=== PATIENT | male | born 1955 | race Caucasian/White ===

== ENCOUNTER 2016-09-13 19:55 | Emergency (ER) | payer MEDICARE ==
[~2016-09-13] VITALS: Ht 175.3 cm; Wt 68.0 kg
[~2016-09-13 19:55] MED LIST: ASPI81TA2 PO; TRAM50TA PO
--- NOTE | 2016-09-13 20:12 | NUR ---
ARRIVAL: PT AMBULATED TO ED 4, PLACED IN GOWN AND UA OBTAINED VIA CLEAN CATCH. ASSESSMENT CHARTED. PLACED ON CONTINUIOUS MONITOR. EDP NOTIFIED OF PT.
[2016-09-13] MEDS ORDERED: ZOFRAN IV STA (20:23)
[2016-09-13 20:28] LABS: BILIRUBIN,URINE NEGATIVE (NEGATIVE); UA COLOR YELLOW (YELLOW); UROBILINOGEN,URINE NORMAL (NEGATIVE)
[2016-09-13] MEDS ORDERED: NS 1000ML 1,000 ML IV ONE (20:30)
[2016-09-13 20:33] LABS: APPEARANCE,URINE SLIGHTLY HAZY (CLEAR)
[2016-09-13 20:34] LABS: WBC,URINE 0-2 WBC/HPF (0-2)
[2016-09-13 20:37] LABS: BASOPHIL % 0.1 % (0.0-0.2); EOSINOPHIL # 0.1 10^3/uL (0.0-0.2); EOSINOPHIL % 0.5 % (0.0-5.0); HEMATOCRIT 40.3 % (37.0-53.0); HEMOGLOBIN 13.6 g/dL (13.9-16.3); LYMPHOCYTES # 2.2 10^3/uL (1.0-4.8); LYMPHOCYTES % 14.4 % (24.0-44.0); MEAN CELL HGB 29.3 pg (26-34); MEAN CELL HGB CONCENTRATION 33.7 g/dL (33-37); MEAN CORP VOLUME 86.9 fL (78-100); MEAN PLATELET VOLUME 9.2 fL (7.8-11.0); MONOCYTES # 1.1 10^3/uL (0.3-0.8); NEUTROPHIL # 11.8 10^3/uL (1.8-7.7); NEUTROPHILS % 77.8 % (41.0-85.0); RED CELL DISTRIBUTION WIDTH 12.8 % (11.5-14.5); WHITE BLOOD CELL 15.2 10^3/uL (4.5-11.0)
[2016-09-13] MEDS ORDERED: ZOFRAN ONE (20:52)
[2016-09-13] MEDS ORDERED: NS 1000ML 1,000 ML ONE ×2 (20:52→21:31)
--- NOTE | 2016-09-13 21:15 | NUR ---
LAB: LAB CALLED WITH CREATININE LAB. EDP NOTIFIED.
[2016-09-13 21:18] LABS: ALKALINE PHOSPHATASE 47 U/L (50-136); AMYLASE 43 U/L (25-115); ASPARTATE AMINO TRANSFERASE 15 U/L (0-35); CALCIUM 8.3 mg/dL (8.4-10.5); CARBON DIOXIDE 24.6 mmol/L (20.0-32); GLUCOSE 106 mg/dL (70-110)
[2016-09-13 21:19] LABS: ALANINE AMINOTRANSFERASE 3 U/L (12-78)
[2016-09-13] MEDS ORDERED: LACTATED RINGERS IV SCH (21:30)
--- NOTE | 2016-09-13 21:33 | NUR ---
IV FLUIDS: 2ND LITER OF NS STARTED ORDERED BY EDP.
--- NOTE | 2016-09-13 21:54 | DIREP ---
PROCEDURE:CT ABDOMEN/PELVIS W/ CONTRAST COMPARISON:[facility], CT, CT-ABDOMEN /PELVIS W W/O CONTRAST, 06/14/2012, 03:15 PM. INDICATIONS:RLQ pain TECHNIQUE:Axial images were created through the abdomen and pelvis with non-ionic intravenous contrast material. No oral contrast was administered. Sagittal and coronal reconstructions were performed from source images. FINDINGS: LUNG BASES:Normal. No visible pulmonary or pleural disease. LIVER:Normal. No significant liver lesions are identified. BILIARY:Normal. No visible dilatation or calcification. PANCREAS:Normal. No lesion, fluid collection, ductal dilatation, or atrophy. SPLEEN:Normal. No enlargement or focal lesion. ADRENALS:Normal. No mass or enlargement. URINARY TRACT:Normal. No focal lesions or hydronephrosis. AORTA/VASCULAR:Normal. No aneurysm. RETROPERITONEUM:Normal. No mass or adenopathy. BOWEL/MESENTERY:The appendix is swollen and there is mild edema/inflammation in the adjacent periappendiceal fat. No abscess is identified. No obstruction, free air, or free fluid are present. ABDOMINAL WALL:Normal. No mass or hernia. PELVIC ORGANS:Prostate is mildly enlarged. BONES:Normal for age. No bony lesion or acute fracture. OTHER:Negative. CONCLUSION: 1. Acute appendicitis. 2. Mildly enlarged prostate. This report was called by telephone at 9:52 pm on September 13, [address] Fady Montes. Dictated by: Po Lezama M.D. on 09/13/2016 at 09:46 PM
--- NOTE | 2016-09-13 21:54 | ER.PDOC ---
General Chief Complaint: Abdomen Pain Stated Complaint: RIGHT SIDE ABD PAIN Time seen by MD: 20:45 Source: patient Exam Limitations: no limitations History of Present Illness Initial Comments Abdominal pain started yesterday, intense on RLQ, no nausea, vomiting Timing/Duration: 24 hours Severity/Quality: severe Radiation: RLQ, periumbilical Allergies: Coded Allergies: codeine (Unverified Allergy, Unknown, 06/21/16) Home Meds Reported Medications Aspirin 81 Mg Tab.chew1 Tab PO DAILY #30 TAB Ref 3 02/12/15 Vital Signs First Vital Signs Date Time Temp Pulse Resp B/P Pulse Ox O2 Delivery O2 Flow Rate FiO2 09/13/16 20:08 98.2 82 18 98 09/13/16 20:11 120/69 Last Vital Signs Date Time Temp Pulse Resp B/P Pulse Ox O2 Delivery O2 Flow Rate FiO2 09/13/16 20:11 98.2 82 18 120/69 98 Past Medical History Medical History: CVA/TIA/stroke, cardiac problems, heart attack Surgical History: cardiac cath, cholecystectomy, pacemaker/ICD, stent Social History Smoking: non-smoker Alcohol Use: none Drug Use: none Constitutional: see HPI EENTM: see HPI Respiratory: see HPI Cardiovascular: see HPI Gastrointestinal: see HPI Genitourinary: see HPI Musculoskeletal: see HPI Skin: see HPI Psychiatric/Neurological: see HPI Endocrine: see HPI Hematologic/Lymphatic: see HPI Physical Exam General Appearance: No Apparent Distress, WD/WN HEENT: PERRL/EOMI, Normal ENT Inspection, TMs Normal, Pharynx Normal Neck: Non-Tender, Full Range of Motion, Supple, Normal Inspection Respiratory: chest non-tender, lungs clear, normal breath sounds, no respiratory distress, no accessory muscle use Cardiovascular: Normal Peripheral Pulses, Regular Rate, Rhythm, No Edema, No Gallop, No JVD, No Murmur Gastrointestinal: Hypoactive bowel sounds, Distended, Guarding (RLQ), Rebound ( RLQ), Tenderness (RLQ) Male Genitalia: Normal Genitalia, Normal Prostate, No Hernia Rectal: Normal Exam Back: Normal Inspection, No CVA Tenderness, No Vertebral Tenderness Extremities: Normal Range of Motion, Non-Tender, Normal Inspection, No Pedal Edema, No Calf Tenderness, Normal Capillary Refill, Pelvis Stable Neurologic/Psychiatric: supervisor felling bucking II-XII NML as Tested, No Motor/Sensory Deficits, Alert, Normal Mood/Affect, Oriented x 3 Skin: Normal Color, Warm/Dry Lymphatic: No Adenopathy Results/Orders Results/Orders Laboratory Tests Test 09/13/16 20:23 09/13/16 20:30 Urine Collection Type Unknown Urine Color Yellow (YELLOW) Urine Appearance Slightly hazy (CLEAR) Urine Bilirubin NegativeMG/DL (NEGATIVE) Urine Ketones Negative (NEGATIVE) Urine Specific [place] 1.020 (1.005-1.035) Urine pH 6 (5.0-6.0) Urine Protein 15 mg/dl (NEGATIVE) Urine Urobilinogen Normal (NEGATIVE) Urine Nitrate Negative (NEGATAIVE) Urine Leukocyte Esterase Negative (NEGATIVE) Urine Blood Negative (NEGATIVE) Urine RBC 0-2RBC/HPF (NONE SEEN) Urine WBC 0-2WBC/HPF (0-2) Urine Squamous Epithelial Cells Rare#/HPF (FEW) Urine Bacteria Rare (NONE SEEN) Urine Fine Granular Casts 0-1 Urine Glucose Normal (NEGATIVE) White Blood Count 15.210^3/uL (4.5-11.0) Red Blood Count 4.6410^6/uL (4.50-5.90) Hemoglobin 13.6g/dL (13.9-16.3) Hematocrit 40.3% (37.0-53.0) Mean Corpuscular Volume 86.9fL (78-100) Mean Corpuscular Hemoglobin 29.3pg (26-34) Mean Corpuscular Hemoglobin Concent 33.7g/dL (33-37) Red Cell Distribution Width 12.8% (11.5-14.5) Platelet Count 28156^3/uL (150-400) Mean Platelet Volume 9.2fL (7.8-11.0) Neutrophils (%) (Auto) 77.8% (41.0-85.0) Lymphocytes (%) (Auto) 14.4% (24.0-44.0) Monocytes (%) (Auto) 7.0% (5.0-12.0) Neutrophils # (Auto) 11.810^3/uL (1.8-7.7) Lymphocytes # (Auto) 2.210^3/uL (1.0-4.8) Monocytes # (Auto) 1.110^3/uL (0.3-0.8) Absolute Immature Granulocyte (auto 0.0310^3 u/L (0-2) Eosinophils % 0.5% (0.0-5.0) Basophils % 0.1% (0.0-0.2) Basophils # 0.010^3/uL (0.0-0.1) Eosinophil Count 0.110^3/uL (0.0-0.2) Prothrombin Time 12.0SEC (8.6-11.8) Prothromb Time International Ratio 1.2 Activated Partial Thromboplast Time 26.5SEC (24.67-30.72) Sodium Level 141mmol/L (132-145) Potassium Level 3.7mmol/L (3.6-5.2) Chloride Level 106.0mmol/L (96-109) Carbon Dioxide Level 24.6mmol/L (20.0-32) Anion Gap 14.1 Blood Urea Nitrogen 14mg/dL (7-18) Creatinine 1.11mg/dL (0.59-1.40) Estimat Glomerular Filtration Rate >60 BUN/Creatinine Ratio 12.0 Glucose Level 106mg/dL (70-110) Calculated Osmolality 292.0 Calcium Level 8.3mg/dL (8.4-10.5) Total Bilirubin 1.1mg/dL (0.2-1.0) Aspartate Amino Transf (AST/SGOT) 15U/L (0-35) Alanine Aminotransferase (ALT/SGPT) 3U/L (12-78) Alkaline Phosphatase 47U/L (50-136) Total Protein 6.8g/dL (6.4-8.2) Albumin 3.5g/dL (3.4-5.0) Globulin 3.3 Amylase Level 43U/L (25-115) Lipase 85U/L (114-286) Percent Immature Gran (Cell Imm) 0.20% (0.00-0.50) Administered Medications Medications (Trade) Dose Ordered Sig/Celio Route PRN Reason Start Time Stop Time Status Last Admin Dose Admin Sodium Chloride (NS 1000ml) 1,000 ml @ 1,200 mls/hr Q50M ONCE IV 09/13/16 20:30 09/13/16 21:19 DC 09/13/16 20:55 Ondansetron HCl (Zofran) 4 mg STAT STAT IV 2/11/17 20:23 09/13/16 20:24 DC 09/13/16 20:55 Course Blood Pressure Systolic: 120 Blood Pressure Diastolic: 69 Blood Pressure Mean: 86 Departure Time of Disposition: 22:07 Disposition: 09 ADMITTED INPATIENT Impression: Primary Impression: Acute appendicitis Condition: Critical Patient Instructions: Abdominal Pain Referrals: SARAY MANN PNEUMATIC TESTER MECHANIC (PCP) PRIMARY CARE PROVIDER DONTE MARTINEZ MD Sep 13, 2016 21:55
--- NOTE | 2016-09-13 22:05 | NUR ---
DR. BALDWIN: EDP ON PHONE WITH DR. BALDWIN ABOUT PT. AWAITING FURTHER ORDERS.
--- NOTE | 2016-09-13 22:10 | NUR ---
DR GIANCARLO MONDRAGON CONTACTEDFOR CARDIAC CLEARANCE PER REQUEST OF DR BALDWIN, DR MONDRAGON SUGGESTS PATIENT BE TRANSFERRED , DR BALDWIN NOTIFIED
--- NOTE | 2016-09-13 22:15 | PRM.ACF1 ---
Admission Criteria Forms ABDOMINAL PAIN Clinical Indications for Admission to Inpatient Care (Place 'X' for any and all applicable criteria): Admission is indicated for ANY ONE of the following(1)(2)(3)(4)(5): [X ]I. Inpatient admission required rather than observation care (Also use Abdominal Pain: Observation Care, as appropriate) because of ANY ONE of the following: [ X]a) Severe pain requiring acute inpatient management [ ]b) Identification of etiology/finding that requires inpatient care (eg, aortic dissection, free air) [ ]c) Absent bowel sounds with complete ileus(6) [ ]d) Suspected toxic megacolon [ ]e) Severe electrolyte abnormalities requiring inpatient care [ ]f) High fever or infection requiring inpatient admission as indicated by ANY ONE of following(7)(8): [ ] i) Appropriate outpatient or observational care antimicrobial treatment unavailable, not effective, or not feasible [ ] ii) Documented bacteremia [ ] iii) Temperature > 104.9 degrees F (oral) [ ] iv) T >103.1 F (oral) or < 96.8 F(rectal) that does not respond to all emergency treatment measures [ ]g) Signs of intestinal obstruction [B] [ ]h) Hemodynamic instability [ ]i) IV fluid to replace significant ongoing losses (greater than 3 L/m2 per day) (12)(13) [ ]j) Percutaneous or open drainage (eg, abscess, biliary tract ) procedures [ ]k) Parenteral nutrition regimen that must be implemented on inpatient basis [ X]l) Other condition,treatment or monitoring requiring inpatient admission. [ ]II. Peritoneal signs present [ ]III. Surgery needed that cannot be performed on an ambulatory basis. [ ]IV. Evaluation requires patient to not eat or drink for extended period ( eg, more than 24 hours). [ ]V. Contraindications and/or Inappropriate clinical situations for Observational Care in patients with abdominal pain, when ANY ONE of the following is required: [ ]a) Thorough evaluation is required to prevent catastrophic events due to delays in diagnosing (e.g.Mesenteric ischemia) 1,3 [ ]b) Patient with severe pathology or with chronic symptoms unlikely to improve in the ED stay (3) [ ]. General contraindications and/or Inappropriate clinical situations for Observational Care in patients with abdominal pain, when ANY ONE of the following is required: [ ]a) Prediction of prolongation of LOS based on ANY ONE of the following may be considered as a contraindication for observational care 2, 3, 4, 5, 6, 7, 8, 9, 10, 11 [ ]i) Age > 65 yrs. [ ]ii) Patient arriving by ambulance [ ]iii) Patient with high acuity [ ]iv) Patient requiring vital sign monitoring [ ]v) Patient on IV medication [ ]b) Systolic blood pressures 180mmHg 3,12 [ ]c) Patient with altered mental status including delirium and other alteration of consciousness, (3) [ ]d) Patient whose discharge disposition will be to a [place] [facility] home or rehabilitation home should not be managed in Emergency Department Observation Unit. CMS rule requires 3 days hospital stay before such placement.3,13 [ ]e) Patient with failure to thrive due to broad array of etiologies 3,16,17 [ ]f) Inability to ambulate 3,14 Extended stay beyond goal length of stay may be needed for(2)(3): [ ]a) Persistent abdominal pain with suspected intra-abdominal process [ ]b) Diagnosed condition requiring continued stay (e.g., pancreatitis, complicated diverticulitis) [ ]c) Surgery (e.g., colectomy) The original [employer] content created by [employer] has been revised. The portions of the content which have been revised are identified through the use of italic text or in bold, and [facility] has neither reviewed nor approved the modified material.All other unmodified content is copyright [facility] Please see references footnoted in the original [facility] edition 2016 Is [facility]/Alysia's added/comple: YES LA ZHANG CDS Sep 13, 2016 22:15
--- NOTE | 2016-09-13 22:24 | NUR ---
[facility]: EDP ON PHONE WITH [facility] TRANSFER LINE. [facility] TRANSFERED EDP TO [facility].
--- NOTE | 2016-09-13 22:33 | NUR ---
DR. BURNS: EDP ON PHONE WITH DR. BUNRS. AWAITING FURTHER OREDERS.
--- NOTE | 2016-09-13 22:44 | NUR ---
[facility] CALLED [facility] , WILL CALL US BACK
--- NOTE | 2016-09-13 22:51 | NUR ---
[facility]: RUTHIE WITH [facility] CALL BACK. STATES ETA OF 40 MINS. WAS WONDERING IF EMS WOULD BRING PT.
--- NOTE | 2016-09-13 23:08 | NUR ---
[facility]: [facility] IN ER. REPORT GIVEN NO QUESTIONS AT THIS TIME. PT TO BE TRANSPORTED TO [facility] FOR [facility] TO PICK PT UP.
--- NOTE | 2016-09-13 23:18 | NUR ---
[facility]: PT TAKEN OUT BY [facility].
[2016-09-13 23:25] VITALS: BP 124/83
--- NOTE | 2016-09-13 23:25 | NUR ---
PT REPORT: PT REPORT CALLED TO MADAI DAMON AT [facility] ER. NO QUESTIONS AT THIS TIME.
== END 2016-09-13 23:25 | disposition short-term general hospital (02) ==
LOC: ER 19:55
DX: K35.80 Unspecified acute appendicitis (principal); I25.2 Old myocardial infarction; Z86.73 Personal history of transient ischemic attack (TIA), and cerebral infarction without residual deficits; Z86.79 Personal history of other diseases of the circulatory system; Z95.818 Presence of other cardiac implants and grafts; Z95.0 Presence of cardiac pacemaker; Z95.5 Presence of coronary angioplasty implant and graft; Z88.5 Allergy status to narcotic agent; Z79.82 Long term (current) use of aspirin
CPT/HCPCS: 36415; 74177; 80053; 81000; 82150; 83690; 85025; 85610; 85730; 87086; 96361; 96374; 99285; J2405; J7030 ×2; Q9967

== ENCOUNTER 2017-03-16 09:54 | Emergency (ER) | payer MEDICARE ==
[~2017-03-16] VITALS: Ht 175.3 cm; Wt 71.2 kg
--- NOTE | 2017-03-16 10:38 | ER.PDOC ---
General Chief Complaint: Extremities Stated Complaint: R ELBOW PAIN Time seen by MD: 10:33 Source: patient Exam Limitations: no limitations History of Present Illness Initial Comments 61 year old white male with right elbow pain for one week now. No history of recent trauma. Localized to lateral epicondyle. No swelling. Takes tylenol with no relief Occurred: last week Severity: moderate Exacerbated By: movement of Relieved By: rest Quality: pain Allergies: Coded Allergies: codeine (Unverified Allergy, Unknown, 06/21/16) Home Meds Reported Medications Aspirin (ASPIRIN) 81 Mg Tab.chew, 1 TAB PO DAILY, #30 TAB 3 Refills 02/12/15 Past Medical History Medical History: cardiac problems, other (pacemaker) Surgical History: appendectomy, shoulder Family History Significant Family History: no pertinent family hx Social History Smoking: non-smoker Alcohol Use: none Drug Use: none Review of Systems Constitutional: denies no symptoms reported, denies see HPI, denies chills, denies diaphoresis, denies fever, denies malaise, denies weakness, denies other EENTM: denies no symptoms reported, denies see HPI, denies eye pain, denies blurred vision, denies tearing, denies double vision, denies ear pain, denies ear discharge, denies nose pain, denies nose congestion, denies throat pain, denies throat swelling, denies mouth pain, denies mouth swelling, denies other Respiratory: denies no symptoms reported, denies see HPI, denies cough, denies orthopnea, denies shortness of breath, denies stridor, denies wheezing, denies other Cardiovascular: denies no symptoms reported, see HPI, denies chest pain, denies edema, denies palpitations, denies syncope, denies other Gastrointestinal: denies no symptoms reported, denies see HPI, denies abdominal pain, denies constipation, denies diarrhea, denies nausea, denies vomiting, denies other Genitourinary: denies no symptoms reported, denies see HPI, denies discharge, denies dysuria, denies frequency, denies hematuria, denies pain, denies other Musculoskeletal: denies no symptoms reported, denies see HPI, denies back pain , denies gout, denies joint pain, denies joint swelling, denies muscle pain, denies muscle stiffness, denies neck pain, denies other Skin: denies no symptoms reported, denies see HPI, denies change in color, denies change in hair/nails, denies dryness, denies lesions, denies lumps, denies rash, denies other Psychiatric/Neurological: denies no symptoms reported, denies see HPI, denies anxiety, denies depressed, denies emotional problems, denies headache, denies numbness, denies paresthesia, denies pre-existing deficit, denies seizure, denies tingling, denies tremors, denies weakness, denies other Physical Exam General Appearance: alert, no distress Upper Extremity: nml inspection, no edema, nml ROM, joints nml, tenderness ( Point tenderness, lateral epicondyle, right elbow) Skin: color nml, warm/dry Vascular: no vascular compromise Neuro/Psych: sensation nml, motor nml Central Exam: oriented X3, CN's nml as tested, nml speech, nml cognition, nml mood/affect EENT: eyes nml inspection, ENT nml inspection, pharynx nml Neck/Back: nml inspection Respiratory: no resp distress, breath sounds nml CVS: reg rate & rhythm, heart sounds nml Abdomen: non-tender, no organomegaly, nml bowels sounds Departure Time of Disposition: 10:37 Disposition: 01 HOME, SELF-CARE Impression: Primary Impression: Lateral epicondylitis of right elbow Condition: Stable Referrals: SARAY MANN EVAPORATIVE COOLER INSTALLER (PCP) PRIMARY CARE PROVIDER Additional Instructions: Indomethacin prn Follow up PCP RTER prn JCARLOS REYNOLDS MD Mar 16, 2017 10:38
[2017-03-16 10:59] VITALS: BP 110/71
== END 2017-03-16 10:56 | disposition home or self-care (01) ==
LOC: ER 09:54
DX: M77.11 Lateral epicondylitis, right elbow (principal); Z95.0 Presence of cardiac pacemaker; Z90.49 Acquired absence of other specified parts of digestive tract; Z88.5 Allergy status to narcotic agent; Z79.82 Long term (current) use of aspirin
CPT/HCPCS: 99283

== ENCOUNTER 2017-05-08 11:25 | Emergency (ER) | payer MEDICARE ==
[~2017-05-08] VITALS: Ht 175.3 cm; Wt 68.9 kg
[~2017-05-08 11:25] MED LIST changes: +ASPI-667 PO; -ASPI81TA2 PO
--- NOTE | 2017-05-08 11:41 | NUR ---
ARRIVAL PATIENT ARRIVED TO ED5 AMBULATORY WITH , C/O OF COUGH FOR THE PAST 2 DAYS, COUGHING UP WITH EMESIS, DENIES TAKING ANY MEDICATIONS, HERE FOR FURTHER EVAL. NO DISTRESS NOTED.
[2017-05-08] MEDS ORDERED: LIDOCAINE 1% VIAL ONE (11:51)
[2017-05-08] MEDS ORDERED: ROCEPHIN ONE (11:52)
[2017-05-08] MEDS ORDERED: ROCEPHIN 1,000 MG in NS 100ML 100 ML IV STA (11:58)
--- NOTE | 2017-05-08 11:59 | ER.PDOC ---
General Chief Complaint: Cough/Congestion Stated Complaint: COUGH/CONGESTION Time seen by MD: 11:45 Source: patient Exam Limitations: no limitations History of Present Illness Initial Comments cough Severity: mild Activities at Onset: none Prior Episodes/Possible Cause: no prior episodes Modifying Factors: improves with activity Associated Symptoms: denies symptoms Prior symptoms/Treatment: Similar symptoms previous Allergies: Coded Allergies: codeine (Unverified Allergy, Unknown, 06/21/16) Home Meds Reported Medications Aspirin (ASPIRIN) 81 Mg Tab.chew, 1 TAB PO DAILY, #30 TAB 3 Refills 02/12/15 Past Medical History Medical History: cardiac problems Surgical History: appendectomy, pacemaker/ICD Family History Significant Family History: no pertinent family hx Social History Smoking: non-smoker Alcohol Use: none Drug Use: none Review of Systems Constitutional: denies fever Respiratory: cough Cardiovascular: denies chest pain Genitourinary: denies discharge Psychiatric/Neurological: denies anxiety All Other Systems: Reviewed and Negative Physical Exam General Appearance: Cachetic HEENT: PERRL/EOMI, Normal ENT Inspection, TMs Normal, Pharynx Normal Neck: Non-Tender, Full Range of Motion, Supple, Normal Inspection Respiratory: no respiratory distress Cardiovascular: Normal Peripheral Pulses, Regular Rate, Rhythm, No Edema, No Gallop, No JVD, No Murmur Extremities: Normal Range of Motion, Non-Tender, Normal Inspection, No Pedal Edema, No Calf Tenderness, Normal Capillary Refill Neurologic/Psychiatric: 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
[2017-05-08] MEDS: ROCEPHIN IM IM STA (12:00)
[2017-05-08 12:11] VITALS: BP 113/7
== END 2017-05-08 12:10 | disposition home or self-care (01) ==
LOC: ER 11:25
DX: J20.9 Acute bronchitis, unspecified (principal); Z79.82 Long term (current) use of aspirin; Z95.0 Presence of cardiac pacemaker; Z88.5 Allergy status to narcotic agent
CPT/HCPCS: 96372; 99283; J0696; J2001; J7050

== ENCOUNTER 2018-08-03 16:56 | Emergency (ER) | payer MEDICARE, MEDICAID ==
[~2018-08-03] VITALS: Ht 167.6 cm; Wt 70.3 kg
--- NOTE | 2018-08-03 17:12 | NUR ---
ARRIVAL PT ARRIVED AMBULATORY TO ER 6 C/O COUGH X3 DAYS. NO ACUTE DISTRESS NOTED. EDP NOTIFIED OF PT ARRIVAL. PT STATES HAS "CHRONIC BRONCHITIS".
[2018-08-03 17:22] VITALS: BP 134/97
[2018-08-03] MEDS ORDERED: SOLU-MEDROL IM STA (17:55)
[2018-08-03] MEDS ORDERED: DECADRON IH STA (17:55)
[2018-08-03] MEDS ORDERED: DUONEB 0.5 MG-3 MG/3 ML SOLN IH STA (17:55)
[2018-08-03] MEDS ORDERED: DUONEB 0.5 MG-3 MG/3 ML SOLN IH ONE (17:58)
[2018-08-03] MEDS ORDERED: DECADRON ONE (17:58)
--- NOTE | 2018-08-03 17:59 | ER.PDOC ---
General Chief Complaint: Cough/Congestion Stated Complaint: COUGHING,FEVER Time seen by MD: 17:56 Source: patient Exam Limitations: no limitations History of Present Illness Initial Comments Fever, cough and congestion for 3 days. Timing/Duration: gradual Severity: moderate Associated Symptoms: fever/chills, cough Allergies: Coded Allergies: codeine (Unverified Allergy, Unknown, 06/21/16) Home Meds Reported Medications Aspirin (ASPIRIN) 81 Mg Tab.chew, 1 TAB PO DAILY, #30 TAB 3 Refills 02/12/15 Constitutional: see HPI EENTM: no symptoms reported Respiratory: see HPI Cardiovascular: no symptoms reported Gastrointestinal: no symptoms reported Genitourinary: no symptoms reported Musculoskeletal: no symptoms reported All Other Systems: Reviewed and Negative Past Medical History Medical History: cardiac problems, congestive heart failure Surgical History: appendectomy, pacemaker/ICD Social History Smoking: non-smoker Alcohol Use: none Drug Use: none Physical Exam General Appearance: alert, no distress Nose: nose nml Neck: nml inspection, supple Respiratory: no resp.distress, wheezes Abdomen: non-tender, no organomegaly CVS: reg rate & rhythm, heart sounds nml Skin: color nml, no rash, warm/dry Extremities: non-tender, nml ROM, no pedal edema NEURO/PSYCH: oriented x 3, CN's nml as tested, motor nml, sensation nml, mood/ affect nml Results/Orders Results/Orders Laboratory Tests Test 08/03/18 18:35 Influenza Type A Antigen NEGATIVE (NEG) Influenza B Immunofluorescence NEGATIVE (NEG) Administered Medications Medications (Trade) Dose Ordered Sig/Celio Route PRN Reason Start Time Stop Time Status Last Admin Dose Admin Albuterol/ Ipratropium (Duoneb 0.5 Mg-3 Mg/3 ml Soln) 3 ml STAT STAT IH 08/03/18 17:55 08/03/18 17:56 DC 08/03/18 18:06 Dexamethasone Sodium Phosphate (Decadron) 4 mg STAT STAT IH 08/03/18 17:55 08/03/18 17:56 DC 08/03/18 18:07 Methylprednisolone Sodium Succinate (Solu-Medrol) 125 mg STAT STAT IM 08/03/18 17:55 08/03/18 17:56 DC 08/03/18 18:34 EKG/XRAY/CT/US XRAY: chest (No active disease) Departure Time of Disposition: 19:09 Disposition: 01 HOME, SELF-CARE Impression: Primary Impression: Acute bronchitis Condition: Stable Referrals: SARAY MANN COMPUGRAPH OPERATOR (PCP) PRIMARY CARE PROVIDER Additional Instructions: Z pack Medrol dose pack Albuterol HFA Mucinex DM OTC as directed F/U with your PCP in 5-7 days Duration or Time Spent with Pa: 60 mins Problem Qualifiers Primary Impression: Acute bronchitis Bronchitis organism: unspecified organism Qualified Codes: J20.9 - Acute bronchitis, unspecified JEY ROBBINS MD Aug 03, 2018 17:59
--- NOTE | 2018-08-03 18:21 | DIREP ---
PROCEDURE:CHEST 2 VIEWS COMPARISON:[facility], CT, CT ABD/PELVIS W/ CONTRAST, 09/13/2016, 09:22 PM. [facility], CR, XRAY CHEST SINGLE VW, 09/04/2016, 06:47 PM. INDICATIONS:Cough FINDINGS: LUNGS/PLEURA:No significant pulmonary parenchymal abnormalities. No effusions. VASCULATURE:Normal. Unremarkable pulmonary vasculature. CARDIAC:Normal. No cardiac silhouette abnormality or cardiomegaly. Right pacemaker. MEDIASTINUM:Normal. No visible mass or adenopathy. BONES:Normal. No fracture or visible bony lesion. OTHER:Negative. CONCLUSION:No acute cardiopulmonary abnormalities. Dictated by: Po Lezama M.D. on 08/03/2018 at 06:16 PM
[2018-08-03] MEDS ORDERED: SOLU-MEDROL ONE (18:31)
[2018-08-03 19:32] VITALS: BP 134/97
== END 2018-08-03 19:29 | disposition home or self-care (01) ==
LOC: ER 16:56
DX: J20.9 Acute bronchitis, unspecified (principal); I50.9 Heart failure, unspecified; Z90.49 Acquired absence of other specified parts of digestive tract; Z79.82 Long term (current) use of aspirin; Z88.5 Allergy status to narcotic agent
CPT/HCPCS: 71046; 86710 ×2; 94640; 96372; 99284; J1100; J2930; J7620; 99283

== ENCOUNTER 2018-12-28 17:30 | Emergency (ER) | payer MEDICARE, OTHER ==
[~2018-12-28] VITALS: Ht 165.1 cm; Wt 68.0 kg
[2018-12-28 17:35] VITALS: BP 143/78
--- NOTE | 2018-12-28 17:35 | NUR ---
ARRIVAL PATIENT ARRIVED TO ED6 VIA GURNEY BY [facility], C/O OF CHEST PAIN TODAY, CALLED EMS TO BRING TO THE ED FOR EVAL. EMS INITIATED A 20G TO THE LEFT AC, GAVE 324MG OF ASPIRIN AND ONE SPRAY OF NITRO WITH MINIMAL RELIEF. HERE FOR FURTHER EVAL
--- NOTE | 2018-12-28 17:44 | PCM.EKG ---
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 Reading MD: Niranjan Menon Measurements Intervals [place] Rate: 73 P: 63 MO: 178 QRS: 18 QRSD: 130 T: 58 QT: 386 QTc: 425 Interpretive Statements Normal sinus rhythm with sinus arrhythmia Right bundle branch block Abnormal ECG No previous ECG available for comparison Electronically Signed On 12-28-2018 19:37:48 CDT by Niranjan Menon Please click the below link to view image of tracing.
[2018-12-28] MEDS ORDERED: NITROSTAT SL STA (17:51)
--- NOTE | 2018-12-28 17:51 | ER.PDOC ---
General Chief Complaint: Chest Pain-Cardiac Nature Stated Complaint: CHEST PAIN Time seen by MD: 17:39 Source: patient Exam Limitations: no limitations History of Present Illness Initial Comments Pt began having chest pain while working in the yard. Has cont'd, but improved with NTG vfrom EMS. Now mild Severity/Quality: mild (now) Prior CP/Workup: Other (chf, pacemeker, not frequent chest pains) Modifying Factors: No exercise; nitroglycerin Nitro Today/Relief: Provided By EMS, Mild Relief Aspirin Today: No Aspirin Today Associated Symptoms: denies symptoms Prior symptoms/Treatment: Similar symptoms previous; No Recenly Seen, No Treated by Doctor Allergies: Coded Allergies: codeine (Unverified Allergy, Unknown, 06/21/16) Home Meds Reported Medications Aspirin (ASPIRIN) 81 Mg Tab.chew, 1 TAB PO DAILY, #30 TAB 3 Refills 02/12/15 Past Medical History Medical History: cardiac problems Surgical History: appendectomy, pacemaker/ICD Social History Smoking: non-smoker Alcohol Use: none Drug Use: none Constitutional: no symptoms reported EENTM: no symptoms reported Respiratory: no symptoms reported Cardiovascular: see HPI Gastrointestinal: no symptoms reported Genitourinary: no symptoms reported Musculoskeletal: no symptoms reported Skin: no symptoms reported Psychiatric/Neurological: no symptoms reported All Other Systems: Reviewed and Negative Physical Exam General Appearance: No Apparent Distress HEENT: PERRL/EOMI, Normal ENT Inspection, TMs Normal, Pharynx Normal Neck: Non-Tender, Full Range of Motion, Supple, Normal Inspection Respiratory: chest non-tender, lungs clear Cardiovascular: Normal Peripheral Pulses, Regular Rate, Rhythm, No Edema Gastrointestinal: Normal Bowel Sounds, No Organomegaly, No Pulsatile Mass, Non Tender, Soft Rectal: Deferred Extremities: Normal Range of Motion Neurologic/Psychiatric: No Motor/Sensory Deficits, Alert, Oriented x 3 Skin: Normal Color, Warm/Dry Results/Orders Results/Orders Orders - NIRANJAN MENON DO Cbc With Auto Diff (12/28/18 17:42) Comprehensive Metabolic Panel (12/28/18 17:42) Creatine Kinase (12/28/18 17:42) Troponin I (12/28/18 17:42) Probnp B-Type Compliance Counsel (12/28/18 17:42) PT (12/28/18 17:42) Partial Thromboplastin Time. (12/28/18 17:42) Helicobacter Pylori (12/28/18 17:42) Xr Chest 1v (12/28/18 17:42) Ekg-Routine (12/28/18 17:42) Vital Signs Date Time Temp Pulse Resp B/P (MAP) Pulse Ox O2 Delivery O2 Flow Rate FiO2 12/28/18 17:35 97.7 75 18 143/78 (99) 95 Room Air 97.7 12/28/18 17:32 97.7 75 18 95 Room Air 97.7 12/28/18 17:31 97.7 75 18 97.7 Progress Progress I spoke with Dr. Callaway and Dr. Nuñez, Dr Nuñez aske dfor pt to be transferred to see his ticket agent in [place]. 1919 -I spoke with [facility], will accept to ER as transfer to Dr. Cutler. EKG/XRAY/CT/US EKG: NSR EKG Comments: no ischemia XRAY: chest XRAY Comments: no infiltrate, pacer present Departure Time of Disposition: 19:21 Disposition: 70 DISC/XFER TO [facility] Impression: Primary Impression: Angina pectoris Condition: Stable Referrals: SARAY MANN INTERNATIONAL MANAGER (PCP) PRIMARY CARE PROVIDER Duration or Time Spent with Pa: 40 NIRANJAN MENON DO December 28, 2018 17:51
[2018-12-28 17:55] LABS: BASOPHIL % 0.3 % (0.0-0.2); EOSINOPHIL # 0.1 10^3/uL (0.0-0.2); EOSINOPHIL % 1.2 % (0.0-5.0); HEMOGLOBIN 14.9 g/dL (13.9-16.3); LYMPHOCYTES # 2.7 10^3/uL (1.0-4.8); MEAN CELL HGB 29.8 pg (26-34); MEAN CELL HGB CONCENTRATION 35.3 g/dL (33-37); MEAN CORP VOLUME 84.4 fL (78-100); MEAN PLATELET VOLUME 8.8 fL (7.8-11.0); MONOCYTES # 0.5 10^3/uL (0.3-0.8); MONOCYTES % 6.9 % (5.0-12.0); NEUTROPHIL # 4.5 10^3/uL (1.8-7.7); NEUTROPHILS % 57.5 % (41.0-85.0); RED CELL DISTRIBUTION WIDTH 12.8 % (11.5-14.5); WHITE BLOOD CELL 7.8 10^3/uL (4.5-11.0)
[2018-12-28 18:21] LABS: ALANINE AMINOTRANSFERASE(ML) 18 U/L (12-78); ALKALINE PHOSPHATASE 48 U/L (50-136); ASPARTATE AMINO TRANSFERASE 15 U/L (0-35); CALCIUM 9.4 mg/dL (8.4-10.5); CARBON DIOXIDE 21.1 mmol/L (20.0-32); GLUCOSE 103 mg/dL (70-110)
--- NOTE | 2018-12-28 18:23 | DIREP ---
PROCEDURE:CHEST 1 VIEW COMPARISON:[facility], CR, XRAY CHEST 2 VWS, 08/03/2018, 05:45 PM. INDICATIONS:CHEST PAIN FINDINGS: LUNGS/PLEURA:No significant pulmonary parenchymal abnormalities. No effusions. VASCULATURE:Normal. Unremarkable pulmonary vasculature. CARDIAC:The heart is not significantly enlarged. Stable right-sided cardiac pacing device. MEDIASTINUM:Normal. No visible mass or adenopathy. BONES:No acute abnormality. OTHER:Negative. CONCLUSION:Stable chest without acute cardiopulmonary abnormality. Dictated by: Martínez Love M.D. on 12/28/2018 at 06:22 PM
--- NOTE | 2018-12-28 19:13 | NUR ---
José Luis Murray on phone with Dr. Ordonez
--- NOTE | 2018-12-28 19:16 | NUR ---
[facility] Dr. Murray on phone with [facility] transfer line
--- NOTE | 2018-12-28 19:20 | NUR ---
[facility] PATIENT WAS ACCEPTED TO [facility] ER. DR. SUAREZ WILL BE ACCEPTING DOCTOR
[2018-12-28 20:02] VITALS: BP 108/65
--- NOTE | 2018-12-28 20:10 | NUR ---
Dispatch Dispatch notifed of transfer to [facility]
--- NOTE | 2018-12-28 20:17 | NUR ---
Report Report was given to Charmaine at [facility] ER
--- NOTE | 2018-12-28 20:28 | NUR ---
[facility] at [facility] bedside for transfer
[2018-12-29 01:34] VITALS: BP 108/65
== END 2018-12-28 20:48 | disposition other institution (70) ==
LOC: ER 17:30 → EDBD 17:30 → ER 20:48
DX: I20.9 Angina pectoris, unspecified (principal); I50.9 Heart failure, unspecified; Z79.82 Long term (current) use of aspirin; Z88.5 Allergy status to narcotic agent; Z95.0 Presence of cardiac pacemaker
CPT/HCPCS: 36415; 71045; 80053; 82550; 83880; 84484; 85025; 85610; 85730; 86677; 93005; 99285